=== PATIENT | female | born 1955 | race Caucasian/White ===

== ENCOUNTER 2020-08-12 12:40 | Outpatient (CLI) | payer BC, SELFPAY ==
--- NOTE | ~2020-08-12 | XR_ITS ---
XR foot RT standing 2V, XR foot LT standing 2V 08/12/2020 13:20 Indication: Foot pain Procedure: 2 views each foot Comparison: No prior studies for comparison. Findings: There is mild symmetric osteoarthritis of the first MTP joints. No fracture, subluxation or dislocation. No erosive changes. No significant soft tissue abnormality. No foreign bodies. Lisfranc joints intact. Impression: 1: Mild symmetric osteoarthritis of the first MTP joints. Reviewed, dictated and finalized at location B. K REPAIRER Impression: 1: Mild symmetric osteoarthritis of the first MTP joints. Impression: 1: Mild symmetric osteoarthritis of the first MTP joints.
--- NOTE | ~2020-08-12 | XR_ITS ---
EXAMINATION: HAND-JOHNATHAN ARTHRITIS 3+VIEWS DATE: 08/12/2020 13:20 INDICATION: Osteoarthritis. TECHNIQUE: Posteroanterior, lateral, and oblique views of the left and of the right hands as well as a ballcatchers view of both hands were obtained. COMPARISON: None. FINDINGS: Postoperative changes of bilateral first carpal metacarpal suspension arthroplasties with resection o f both the left and right trapezium. Moderate osteoarthritis at the bilateral second, third and fifth distal interphalangeal joints and right first metacarpophalangeal joint. Mild osteoarthritis at the bilateral first interphalangeal and fourth distal interphalangeal joints. There is mild radial angula tion at the second and third distal interphalangeal joints. Minimally distracted dorsal avulsion frac ture at the base of the left fifth distal phalanx with less than 1 mm separation of the fracture jim ins at the articular surface. No other fractures identified. IMPRESSION: 1. Minimally distracted intra-articular dorsal avulsion fracture at the base of the left fifth distal phalanx. 2. Relatively symmetric mild to moderate bilateral polyarticular osteoarthritis with distal interphal angeal predominance. 3. Bilateral first carpal metacarpal suspension arthroplasties. Reviewed, dictated and finalized at location A. NSED OPTICAL DISPENSER IMPRESSION: 1. Minimally distracted intra-articular dorsal avulsion fracture at the base of the left fifth distal phalanx. 2. Relatively symmetric mild to moderate bilateral polyarticular osteoarthritis with distal interphalangeal predominance. 3. Bilateral first carpal metacarpal suspension arthroplasties.
== END 2020-08-12 12:41 | disposition home or self-care (01) ==
LOC: ANHIMG 12:52
PROVIDERS: PCP Physician Assistant; Visit Provider Internal Medicine
DX: M19.041 Primary osteoarthritis, right hand (principal); M19.042 Primary osteoarthritis, left hand; M18.0 Bilateral primary osteoarthritis of first carpometacarpal joints
CPT/HCPCS: 73130; 73620

== ENCOUNTER 2020-09-17 02:22 | Outpatient (CLI) | payer BC, SELFPAY ==
[2020-09-17 17:23] LABS: SARS-CoV-2 RNA PCR Negative
== END 2020-09-17 02:23 | disposition home or self-care (01) ==
LOC: ANHCOVIDDT 02:22
PROVIDERS: PCP Physician Assistant; Visit Provider Internal Medicine Gastroenterology
DX: Z01.812 Encounter for preprocedural laboratory examination (principal); Z20.822 Contact with and (suspected) exposure to COVID-19
CPT/HCPCS: C9803; U0003

== ENCOUNTER 2020-09-20 01:42 | Day surgery (SDC) | payer BC, SELFPAY ==
[2020-09-13 12:19] VITALS: BMI 21.1
[2020-09-20 09:23] VITALS: BP 125/84; PULSE 108; RESP 18; TEMP 36.5; O2SAT 99
[2020-09-20] MEDS: LACTATED RINGERS 1,000 ML 150 ML IV CONT (09:36)
--- NOTE | 2020-09-20 09:48 | WPDANESEPPF ---
Anes - Initial Pre Proc Eval Procedure: Operation Date: 09/20/20 10:30 Proposed Procedures p Esophagogastroduodenoscopy - Kings Peterson MD Date/Time: 09/20/20 09:48 Surgeon: Kings Peterson MD Pre Op Diagnosis: Dysphasia Patient Data Age: 64 Gender: F Height: 5 ft 3.5 in Weight: 54.9 kg Last Vital Signs Temp 97.7 F 09/20/20 09:23 Pulse 108 H 09/20/20 09:23 Resp 18 09/20/20 09:23 BP 125/84 09/20/20 09:23 Pulse Ox 99 09/20/20 09:23 Allergies Allergy/AdvReac Type Severity Reaction Status Date / Time codeine Allergy Intermediate Hives Verified 09/20/20 09:18 Home Medications Medication Instructions Recorded Confirmed Type estradiol 10 mcg vaginal insert 10 mcg VAGINAL 2XW 03/15/20 09/13/20 History valacyclovir 500 mg tablet 500 mg PO DAILY PRN 06/01/20 09/13/20 History omeprazole 40 mg capsule,delayed 40 mg PO DAILY #30 cap 06/28/20 09/13/20 Rx release alendronate 70 mg PO WEEKLY 09/13/20 09/13/20 History alprazolam 0.25 mg PO DAILY PRN 09/13/20 09/13/20 History atorvastatin 10 mg PO HS 09/13/20 09/13/20 History cholecalciferol (vitamin D3) 2,000 unit PO DAILY 09/13/20 09/13/20 History [Vitamin D3] coQ10 (ubiquinol) 100 mg PO DAILY 09/13/20 09/13/20 History digestive enzymes 1 cap PO TIDWMEAL 09/13/20 09/13/20 History magnesium 2 tablet PO DAILY 09/13/20 09/13/20 History hqaulbgz-ism-ukoa-FA-lutein 1 tablet PO DAILY 09/13/20 09/13/20 History [Centrum Silver Women] omega 0-yux-xmm-fish oil [Fish Oil] 1 cap PO DAILY 09/13/20 09/13/20 History Patient hx anesthesia problems: none Family hx anesthesia problems: none PMFSH Past Medical History Medical History (Updated 08/19/20 @ 10:33 by ESTEVAN King) Counseling on health promotion and disease prevention Dyslipidemia Dysphagia Elevated cholesterol Esophageal abnormality GERD (gastroesophageal reflux disease) Inflammatory arthritis Osteopenia Recurrent genital herpes Scoliosis Surgical History Surgical History H/O right knee surgery (~2010) 2010 History of hip replacement left - 2017 History of thumb surgery bilateral Hx of section (~1985) 1985 Hx of tonsillectomy Family History Family History Father Diabetes mellitus Family history of cardiovascular disease Family history of coronary artery disease Social History Social History Smoking status: Never smoker Second hand tobacco smoke exposure: No Alcohol intake: never Substance use: never Substance use type: does not use Gender identity (if verbalized by the patient): Female Spiritual care concerns: No Anes - Eval Final PreProcedure Day of Procedure 09/20/20 09:48 Patient weight: normal Heart: regular rate and rhythm Lungs: clear to auscultation Airway: Mallampati scale class II Neurological: alert and oriented Last oral intake: >/= 8 hours ASA classification: II Emergent: no Anesthetic plan: proceed Anesthesia type and monitoring: general GIVS and standard monitoring Informed Consent: The patient's anesthetic plan and its attendant risks and benefits were discussed with the patient/family/POA. Questions were solicited and answers provided to the satisfaction of the patient/family/POA.
--- NOTE | 2020-09-20 10:37 | PM.HPGS ---
History of Present Illness History of Present Illness Consent: Risks, benefits, and alternatives have been discussed and questions answered. Patient agrees to proceed with procedure. Chief complaint: Dysphasia Narrative: Nimco Azar is a 64 year old female with dysphagia to solids, on ppi, never had egd Review of Systems Constitutional: Constitutional: Denies headache(s) and Denies weakness Eyes: Eyes: Denies blurry vision ENT: Reports Normal hearing present, Denies headache(s) and Denies neck pain Cardiovascular: Cardiovascular: Denies chest pain and Denies dyspnea Respiratory: Respiratory: Denies dyspnea Gastrointestinal: Gastrointestinal: Reports no additional gastrointestinal complaints Genitourinary: Genitourinary: Denies dysuria Musculoskeletal: Musculoskeletal: Denies neck pain Integumentary/Breasts: Skin/Breast: Denies dry skin Neurologic: Reports Normal hearing present, Denies headache(s) and Denies weakness Psychiatric: Psychiatric: Denies anxiety Endocrine: Endocrine: Denies change in body appearance Hematologic/Lymphatic: Hematologic/Lymphatic: Denies easy bleeding Allergic/Immunologic: Allergic/Immunologic: Denies urticaria PMFSH Past Medical History Medical History (Updated 08/19/20 @ 10:33 by ESTEVAN King) Counseling on health promotion and disease prevention Dyslipidemia Dysphagia Elevated cholesterol Esophageal abnormality GERD (gastroesophageal reflux disease) Inflammatory arthritis Osteopenia Recurrent genital herpes Scoliosis Surgical History Surgical History H/O right knee surgery (~2010) 2010 History of hip replacement left - 2017 History of thumb surgery bilateral Hx of section (~1985) 1985 Hx of tonsillectomy Family History Family History Father Diabetes mellitus Family history of cardiovascular disease Family history of coronary artery disease Social History Social History Smoking status: Never smoker Second hand tobacco smoke exposure: No Alcohol intake: never Substance use: never Substance use type: does not use Gender identity (if verbalized by the patient): Female Spiritual care concerns: No Meds Home Medications and Allergies Home Medications Medication Instructions Recorded Confirmed Type estradiol 10 mcg vaginal insert 10 mcg VAGINAL 2XW 03/15/20 09/13/20 History valacyclovir 500 mg tablet 500 mg PO DAILY PRN 06/01/20 09/13/20 History omeprazole 40 mg capsule,delayed 40 mg PO DAILY #30 cap 06/28/20 09/13/20 Rx release alendronate 70 mg PO WEEKLY 09/13/20 09/13/20 History alprazolam 0.25 mg PO DAILY PRN 09/13/20 09/13/20 History atorvastatin 10 mg PO HS 09/13/20 09/13/20 History cholecalciferol (vitamin D3) 2,000 unit PO DAILY 09/13/20 09/13/20 History [Vitamin D3] coQ10 (ubiquinol) 100 mg PO DAILY 09/13/20 09/13/20 History digestive enzymes 1 cap PO TIDWMEAL 09/13/20 09/13/20 History magnesium 2 tablet PO DAILY 09/13/20 09/13/20 History lmvfnnca-mte-rrqw-FA-lutein 1 tablet PO DAILY 09/13/20 09/13/20 History [Centrum Silver Women] omega 2-myb-zfu-fish oil [Fish Oil] 1 cap PO DAILY 09/13/20 09/13/20 History Allergies Allergy/AdvReac Type Severity Reaction Status Date / Time codeine Allergy Intermediate Hives Verified 09/20/20 09:18 Vital Signs Vital Signs - 24 hr 09/20/20 09:23 Temperature 97.7 F Pulse Rate 108 H Respiratory Rate 18 Blood Pressure 125/84 Pulse Oximetry 99 Exam Const: General: comfortable and no acute distress HENMT: General nose exam: Normal nares present Eyes: General: appearance normal, both eyes and all related structures Neck: Neck: no JVD Resp: Auscultation: clear to auscultation bilaterally Cardio: Rate: regular rate Rhythm: regular rhythm GI: Inspection: non-dist
[2020-09-20 10:54] VITALS: BP 90/44; PULSE 77; RESP 18; O2SAT 98
[2020-09-20 11:04] VITALS: BP 82/46; PULSE 83; RESP 20; O2SAT 99
[2020-09-20 11:14] VITALS: BP 94/55; PULSE 72; RESP 20; O2SAT 99
== END 2020-09-20 11:29 | disposition home or self-care (01) ==
PROVIDERS: PCP Physician Assistant; Visit Provider Internal Medicine Gastroenterology
PROC: 0DJ08ZZ Inspection of Upper Intestinal Tract, Via Natural or Artificial Opening Endoscopic (ICD-10-PCS; CPT 43235; principal; 2020-09-20 10:30)
DX: R13.10 Dysphagia, unspecified (principal); K29.50 Unspecified chronic gastritis without bleeding; K21.9 Gastro-esophageal reflux disease without esophagitis; E78.5 Hyperlipidemia, unspecified; E78.00 Pure hypercholesterolemia, unspecified; M19.90 Unspecified osteoarthritis, unspecified site; M41.9 Scoliosis, unspecified
CPT/HCPCS: 43239; 43248; 88305; 88342; J2704; J7120

== ENCOUNTER 2022-06-21 00:24 | Day surgery (SDC) | payer MEDICARE, SELFPAY ==
[2022-05-09 12:16] VITALS: BMI 20.9
[2022-06-07 12:41] VITALS: BMI 20.9
[2022-06-21 07:28] VITALS: BP 107/73; PULSE 96; RESP 20; TEMP 36.6; O2SAT 98; BMI 20.9
[2022-06-21] MEDS: LACTATED RINGERS 1,000 ML 150 ML IV CONT (07:41)
--- NOTE | 2022-06-21 08:26 | WPDANESEPPF ---
Anes - Initial Pre Proc Eval Procedure: Operation Date: 06/21/22 08:45 Proposed Procedures p Screening Colonoscopy - Kings Peterson MD Date/Time: 06/21/22 08:26 Surgeon: Kings Peterson MD Pre Op Diagnosis: neoplasm screening Patient Data Age: 66 Gender: F Height: 1.6 m Weight: 53.7 kg Last Vital Signs Temp 97.8 F 06/21/22 07:28 Pulse 96 06/21/22 07:28 Resp 20 06/21/22 07:28 BP 107/73 06/21/22 07:28 Pulse Ox 98 06/21/22 07:28 O2 Del Method Room Air 06/21/22 07:28 Allergies Allergy/AdvReac Type Severity Reaction Status Date / Time codeine Allergy Intermediate Hives Verified 06/21/22 07:28 Home Medications Medication Instructions Recorded Confirmed Type estradiol 10 mcg vaginal insert 10 mcg vaginal 2XW 03/15/20 06/07/22 History (Imvexxy Maintenance Pack) valacyclovir 500 mg tablet 500 mg PO DAILY PRN Outbreak 06/01/20 06/07/22 History alendronate 70 mg tablet 70 mg PO WEEKLY 09/13/20 06/07/22 History alprazolam 0.25 mg tablet 0.25 mg PO DAILY PRN Anxiety 09/13/20 06/07/22 History cholecalciferol (vitamin D3) 50 2,000 unit PO DAILY 09/13/20 06/07/22 History mcg (2,000 unit) capsule (Vitamin D3) digestive enzymes 1 cap PO TIDWMEAL 09/13/20 06/07/22 History magnesium 2 tablet PO DAILY 09/13/20 06/07/22 History multivit with 1 tablet PO DAILY 09/13/20 06/07/22 History adfzoagu-zafd-QL-lutein 8 mg iron-400 mcg-300 mcg tablet (Centrum Silver Women) omeprazole 40 mg capsule,delayed See Rx Instructions .Route 01/25/22 06/07/22 Rx release .COMPLEX #90 caps fenofibrate nanocrystallized 48 mg 48 mg PO DAILY #90 tabs 03/08/22 06/07/22 Rx tablet Patient hx anesthesia problems: none Family hx anesthesia problems: none Results Review: All pre-operative results and documents have been reviewed as part of the pre-operative evaluation. PMFSH Past Medical History Medical History Counseling on health promotion and disease prevention Dyslipidemia Dysphagia Esophageal abnormality GERD (gastroesophageal reflux disease) Inflammatory arthritis Osteopenia Recurrent genital herpes Rotator cuff tear Scoliosis Surgical History Surgical History H/O right knee surgery (~2010) 2010 History of hip replacement left - 2017 History of thumb surgery bilateral Hx of section (~1985) 1985 Hx of tonsillectomy Family History Family History Father Diabetes mellitus Family history of cardiovascular disease Family history of coronary artery disease Social History Social History Smoking status: Never smoker Second hand tobacco smoke exposure: No Alcohol intake: never Substance use: never Substance use type: does not use Living arrangements: with family Gender identity (if verbalized by the patient): Female Spiritual care concerns: No Anes - Eval Final PreProcedure Day of Procedure 06/21/22 08:26 Patient weight: normal Heart: regular rate and rhythm Lungs: clear to auscultation Airway: Mallampati scale class II Neurological: alert and oriented Last oral intake: >/= 8 hours ASA classification: II Emergent: no Anesthetic plan: proceed Anesthesia type and monitoring: general GIVS and standard monitoring Results Review: All pre-operative results and documents have been reviewed as part of the pre-operative evaluation. Informed Consent: The patient's anesthetic plan and its attendant risks and benefits were discussed with the patient/family/POA. Questions were solicited and answers provided to the satisfaction of the patient/family/POA.
--- NOTE | 2022-06-21 08:29 | PM.HPGS ---
History of Present Illness History of Present Illness Consent: Risks, benefits, and alternatives have been discussed and questions answered. Patient agrees to proceed with procedure. Chief complaint: neoplasm screening Narrative: Nimco Azar is a 66 year old female here for screening colonoscopy, last one 2013 Review of Systems Constitutional: Constitutional: Denies headache(s) and Denies weakness Eyes: Eyes: Denies blurry vision ENT: Reports Normal hearing present, Denies headache(s) and Denies neck pain Cardiovascular: Cardiovascular: Denies chest pain and Denies dyspnea Respiratory: Respiratory: Denies dyspnea Gastrointestinal: Gastrointestinal: Reports no additional gastrointestinal complaints Genitourinary: Genitourinary: Denies dysuria Musculoskeletal: Musculoskeletal: Denies neck pain Integumentary/Breasts: Skin/Breast: Denies dry skin Neurologic: Reports Normal hearing present, Denies headache(s) and Denies weakness Psychiatric: Psychiatric: Denies anxiety Endocrine: Endocrine: Denies change in body appearance Hematologic/Lymphatic: Hematologic/Lymphatic: Denies easy bleeding Allergic/Immunologic: Allergic/Immunologic: Denies urticaria PMFSH Past Medical History Medical History (Updated 06/21/22 @ 08:30 by Kings Peterson MD) Colon cancer screening Counseling on health promotion and disease prevention Dyslipidemia Dysphagia Esophageal abnormality GERD (gastroesophageal reflux disease) Inflammatory arthritis Osteopenia Recurrent genital herpes Rotator cuff tear Scoliosis Surgical History Surgical History H/O right knee surgery (~2010) 2010 History of hip replacement left - 2017 History of thumb surgery bilateral Hx of section (~1985) 1985 Hx of tonsillectomy Family History Family History Father Diabetes mellitus Family history of cardiovascular disease Family history of coronary artery disease Social History Social History Smoking status: Never smoker Second hand tobacco smoke exposure: No Alcohol intake: never Substance use: never Substance use type: does not use Living arrangements: with family Gender identity (if verbalized by the patient): Female Spiritual care concerns: No Meds Home Medications and Allergies Home Medications Medication Instructions Recorded Confirmed Type estradiol 10 mcg vaginal insert 10 mcg vaginal 2XW 03/15/06/07/22 History (Imvexxy Maintenance Pack) valacyclovir 500 mg tablet 500 mg PO DAILY PRN Outbreak 06/01/20 06/07/22 History alendronate 70 mg tablet 70 mg PO WEEKLY 09/13/20 06/07/22 History alprazolam 0.25 mg tablet 0.25 mg PO DAILY PRN Anxiety 09/13/20 06/07/22 History cholecalciferol (vitamin D3) 50 2,000 unit PO DAILY 09/13/20 06/07/22 History mcg (2,000 unit) capsule (Vitamin D3) digestive enzymes 1 cap PO TIDWMEAL 09/13/20 06/07/22 History magnesium 2 tablet PO DAILY 09/13/20 06/07/22 History multivit with 1 tablet PO DAILY 09/13/20 06/07/22 History oapmfezj-fwap-EC-lutein 8 mg iron-400 mcg-300 mcg tablet (Centrum Silver Women) omeprazole 40 mg capsule,delayed See Rx Instructions .Route 01/25/22 06/07/22 Rx release .COMPLEX #90 caps fenofibrate nanocrystallized 48 mg 48 mg PO DAILY #90 tabs 03/08/22 06/07/22 Rx tablet Allergies Allergy/AdvReac Type Severity Reaction Status Date / Time codeine Allergy Intermediate Hives Verified 06/21/22 07:28 Vital Signs Vital Signs - 24 hr 06/21/22 07:28 Temperature 97.8 F Pulse Rate 96 Respiratory Rate 20 Blood Pressure 107/73 Pulse Oximetry 98 Oxygen Delivery Room Air Exam Const: General: comfortable and no acute distress HENMT: Face/Nose/Sinus: Normal nares present Eyes: General: appearance normal, both eyes and all related
[2022-06-21 08:55] VITALS: BP 95/56; PULSE 74; RESP 14; O2SAT 97
[2022-06-21 09:05] VITALS: BP 102/76; PULSE 69; RESP 13; O2SAT 99
[2022-06-21 09:15] VITALS: BP 106/52; PULSE 70; RESP 17; O2SAT 97
== END 2022-06-21 09:26 | disposition home or self-care (01) ==
PROVIDERS: PCP Internal Medicine; Visit Provider Internal Medicine Gastroenterology
PROC: 0DJD8ZZ Inspection of Lower Intestinal Tract, Via Natural or Artificial Opening Endoscopic (ICD-10-PCS; CPT 45378; principal; 2022-06-21 08:45)
DX: Z12.11 Encounter for screening for malignant neoplasm of colon (principal); D12.2 Benign neoplasm of ascending colon; E78.5 Hyperlipidemia, unspecified; K21.9 Gastro-esophageal reflux disease without esophagitis; Z96.642 Presence of left artificial hip joint
CPT/HCPCS: 45380; 88305; J2704; J7120

== ENCOUNTER 2022-07-24 15:19 | Outpatient (CLI) | payer MEDICARE, SELFPAY ==
--- NOTE | ~2022-07-24 | XR_ITS ---
EXAMINATION: XR scoliosis survey DATE: 07/24/2022 16:22 INDICATION: Other idiopathic scoliosis, thoracolumbar region. TECHNIQUE: Anteroposterior and lateral views of the entire spine standing with breast wan were ob tained. COMPARISON: None. FINDINGS: There is a total left hip arthroplasty. There are 12 pairs of ribs. There are 5 nonrib-bear ing lumbar segments. There is 38 degrees levoscoliosis from T5 to T11 by the Robles method. There is 46 degrees dextro scoliosis from T11 to L3. There is 2 mm retrolisthesis of C5 on C6. There is moderate cervical and thoracic spondylosis and mild lumbar spondylosis. IMPRESSION: 1. Scoliosis. Reviewed, dictated and finalized at location A. UNT MANAGER RELIEF IMPRESSION: 1. Scoliosis.
== END 2022-07-24 15:20 | disposition home or self-care (01) ==
PROVIDERS: PCP Internal Medicine; Visit Provider Internal Medicine
DX: M41.25 Other idiopathic scoliosis, thoracolumbar region (principal)
CPT/HCPCS: 72082